=== PATIENT | male | born 1990 | race Two or more races ===

== ENCOUNTER → 2024-02-14 | Outpatient (CLI) | payer BC, SELFPAY ==
--- NOTE | 2024-02-14 14:45 | XR_ITS ---
Examination: Bilateral wrist 4 views Technique one AP lateral right and left wrist total 4 views Exam date and time: February 14, 2024 1456 hours INDICATIONS: Bilateral wrist pain and weakness beginning 5 months ago. FINDINGS: Adequate bone density. No fracture involving either wrist The left distal ulna is mildly dorsally positioned on the lateral view which may be a function of projection, the appearance should be clinically correlated IMPRESSION: No fracture involving either wrist No significant arthritic change Recommend follow-up true lateral view of the left wrist as clinically warranted
== END | disposition home or self-care (01) ==
PROVIDERS: PCP Family Medicine; Referring Provider Orthopaedic Surgery; Visit Provider Orthopaedic Surgery
DX: M25.532 Pain in left wrist (principal); M25.531 Pain in right wrist
CPT/HCPCS: 73100

== ENCOUNTER → 2024-07-29 | Outpatient (CLI) | payer BC, SELFPAY ==
[2024-07-29 10:30] LABS: Sed Rate (ESR) 5 mm/hr (0-15)
[2024-07-29 11:22] LABS: Alanine Aminotransferase 35 U/L (10-49); Albumin, Serum 4.4 gm/dL (3.5-5.0); Albumin/Globulin Ratio 1.6 (1.2-2.2); Alkaline Phosphatase 65 U/L (46-116); Anion Gap 13 (7-16); Aspartate Amino Transferase 27 U/L (0-34); BUN/Creatinine Ratio 9 Ratio (12-20); Bilirubin,Total 2.1 mg/dL (0.3-1.2); Blood Urea Nitrogen 10 mg/dL (9-23); C-Reactive Protein < 0.5 mg/dL (0.0-0.9); Calcium 9.3 mg/dL (8.3-10.6); Calcium (Corrected) 9.3 mg/dL (8.5-10.1); Carbon Dioxide 27.1 mMol/L (20.0-31.0); Chloride 104 mMol/L (98-107); Creatine Kinase 206 U/L (34-171); Creatinine (Component) 1.1 mg/dL (0.6-1.3); Globulin 2.8 gm/dL (2.3-3.5); Glucose 83 mg/dL (74-106); LDH (Lactate Dehydrogenase) 174 U/L (120-246); Osmolality,Calculated 284 (275-295); Potassium 3.9 mMol/L (3.4-5.1); Sodium 144 mMol/L (136-145); Total Protein 7.2 gm/dL (5.7-8.2); eGFR > 60 See Note
== END | disposition home or self-care (01) ==
PROVIDERS: PCP Family Medicine; Referring Provider Student in an Organized Health Care Education/Training Program; Visit Provider Student in an Organized Health Care Education/Training Program
DX: M62.81 Muscle weakness (generalized) (principal)
CPT/HCPCS: 36415; 80053; 82085; 82550; 83615; 85652; 86140